=== PATIENT | female | born 1970 | race African-American/Black ===

== ENCOUNTER 2024-04-25 23:36 | Emergency (ER) | payer MEDICAID ==
[~2024-04-25] VITALS: Ht 165.1 cm; Wt 68.0 kg
[~2024-04-25 23:36] MED LIST: ADVIL; ASPIRIN
[2024-04-25 23:53] VITALS: TEMP 98.5; O2SAT 98
[2024-04-26] MEDS: ACETAMINOPHEN 325MG TABLET PO STA (00:20)
[2024-04-26] MEDS: MAGNESIUM/ALUMINUM HYDROXIDE/SIMETHICONE 30ML UDC PO STA (00:20)
[2024-04-26 00:49] LABS: BASOPHILS % 0.3 % (0.0-2.0); EOSINOPHILS % 1.1 % (0.0-5.0); HEMATOCRIT. 35.3 % (36.0-48.0); HEMOGLOBIN. 12.1 g/dL (12.0-16.0); LYMPHOCYTES % 38.4 % (20.0-50.0); MEAN CORPUSCULAR HEMOGLOBIN 30.2 pg (28.0-32.0); MEAN CORPUSCULAR HGB CONC 34.1 g/dL (31.0-37.0); MEAN CORPUSCULAR VOLUME 88.4 fL (81.0-99.0); MEAN PLATELET VOLUME 8.2 fl (7.4-10.4); MONOCYTES % 6.4 % (2.0-8.0); NEUTROPHILS % 53.8 % (40.0-76.0); PLATELET 301 x1000/uL (130-400); RED BLOOD CELL COUNT 3.99 mill/uL (4.2-5.4); RED CELL DISTRIBUTION WIDTH 13.2 % (11.6-14.6); WHITE BLOOD COUNT 10.8 x1000/uL (4.5-11.0)
[2024-04-26 00:57] LABS: CHLORIDE 107 mEq/L (98-107); POTASSIUM 3.6 mEq/L (3.5-5.1); SODIUM 140 mEq/L (136-145)
[2024-04-26 00:58] LABS: CALCIUM 9.2 mg/dL (8.7-10.4); CARBON DIOXIDE 28 mEq/L (21-32)
[2024-04-26 01:03] LABS: GLUCOSE 119 mg/dL (70-105); UREA NITROGEN BLOOD 15 mg/dL (9-23)
[2024-04-26 01:05] LABS: ALANINE AMINOTRANSFERASE 53 IU/L (10-49); ALBUMIN 4.5 g/dL (3.2-4.8); ASPARTATE AMINOTRANSFERASE 109 IU/L (<34); BILIRUBIN DIRECT 0.2 mg/dL (<=3.0); BILIRUBIN TOTAL 0.8 mg/dL (0.1-1.0); PROTEIN TOTAL 7.2 g/dL (6.0-8.3)
[2024-04-26 01:07] LABS: PROTHROMBIN TIME 10.8 sec (9.6-11.0)
[2024-04-26 01:12] LABS: CLARITY URINE CLEAR (CLEAR); COLOR URINE YELLOW (YELLOW); GLUCOSE URINE NEGATIVE (NEGATIVE); KETONES URINE NEGATIVE (NEGATIVE); LEUKOCYTE ESTERASE URINE 2+ (NEGATIVE); NITRITE URINE NEGATIVE (NEGATIVE); OCCULT BLOOD URINE NEGATIVE (NEGATIVE); PROTEIN URINE 1+ (NEGATIVE); SPECIFIC GRAVITY URINE 1.012 (1.005-1.030)
[2024-04-26] MEDS: HYDRALAZINE 20MG/ML VIAL IV NR (01:19)
[2024-04-26] MEDS ORDERED: ACET-2708 MT (03:51)
[2024-04-26] MEDS ORDERED: ONDA4TAB50 MT (03:51)
[2024-04-26] MEDS ORDERED: MAG355OR21 MT (03:51)
[2024-04-26] MEDS ORDERED: ALBU90AE INH (04:02)
[2024-04-26 04:10] VITALS: BP 149/72; PULSE 92; RESP 12; O2SAT 99
[2024-04-26 04:23] LABS: RBC URINE 0-2 /hpf (0-2); SQUAMOUS EPITHELIAL CELL URINE FEW /lpf (RARE/1+); WBC URINE 0-2 /hpf (0-2)
[2024-04-26 04:25] LABS: BACTERIA URINE NONE SEEN
== END 2024-04-26 04:15 | disposition home or self-care (01) ==
LOC: ER 23:36
DX: K80.20 Calculus of gallbladder without cholecystitis without obstruction (principal); I10 Essential (primary) hypertension; Z79.899 Other long term (current) drug therapy
CPT/HCPCS: 36415; 71045; 93005; 99285; 80076; 80048; 81003; 83690; 85025; 85610; 76705; 96374; J0360; Z7610 ×4